=== PATIENT | male | born 1965 | race Caucasian/White ===

== ENCOUNTER 2021-02-04 19:24 | Observation (INO) | payer BC ==
[~2021-02-04 19:24] MED LIST: Iopamidol-370 76% 500 ML 1 ML ONE
[2021-02-04 19:58] LABS: #Basophils 0.1 thou/uL (0.0-0.2); #Eosinphils 0.2 thou/uL (0.0-0.7); #Lymphocytes 3.3 thou/uL (1.20-3.40); #Monocytes 0.7 thou/uL (0.11-0.59); #Neutrophils 4.9 thou/uL (1.40-6.50); %Basophils 1.4 % (0.0-1.0); %Eosinophils 2.1 % (0.0-10.0); %Monocytes 7.6 % (0.0-10.0); %Neutrophils 52.9 % (42.0-75.0); Hemoglobin 15.7 g/dL (14.0-18.0); Mean Corpuscular HGB CONC 34.4 g/dL (32.0-36.0); Mean Corpuscular Hemoglobin 30.7 pg (27.0-31.0); Mean Corpuscular Volume 89.4 fL (78.0-98.0); Mean Platelet Volume 8.2 fL (7.4-10.4); Platelet Count 243 thou/uL (130-400); RBC Distribution Width 12.4 % (11.5-14.5); Red Blood Cell (RBC) Count 5.11 mill/uL (4.70-6.10); White Blood Cell (WBC) Count 9.3 thou/uL (4.8-10.8)
[2021-02-04 20:19] LABS: ALT (SGPT) 27 U/L (8-55); AST (SGOT) 15 U/L (5-34); Alkaline Phosphatase 63 U/L (40-110); Anion Gap 17 mmol/L (10-20); BUN (Urea Nitrogen) 19 mg/dL (8.4-25.7); Bilirubin, Total 0.2 mg/dL (0.2-1.2); Calc. Creatinine Clearance 0 mL/min (70-130); Calcium 9.2 mg/dL (7.8-10.44); Carbon Dioxide 26 mmol/L (22-29); Chloride 101 mmol/L (98-107); Globulin 3.4 g/dL (2.4-3.5); Glucose 114 mg/dL (70-105); Potassium 3.5 mmol/L (3.5-5.1); Protein, Total 7.4 g/dL (6.0-8.3); Sodium 140 mmol/L (136-145)
[2021-02-04] MEDS ORDERED: Aspirin Chewable 81 MG TAB ONE (20:42)
[2021-02-04] MEDS ORDERED: Nitroglycerin 2% Ointment 1 INCH/1 GM Packet ONE (20:42)
[2021-02-04] MEDS ORDERED: Ondansetron PF 4 MG/2 ML Vial IVP PRN (21:32)
[2021-02-04] MEDS ORDERED: Ondansetron ODT 4 MG TAB PO PRN (21:32)
[2021-02-04] MEDS ORDERED: hydrOXYzine 25 MG TAB PO PRN (21:42)
[2021-02-04 23:14] LABS: Troponin I Less than 0.010 ng/mL (< 0.028)
[2021-02-04 23:18] VITALS: BMI 41.1
[2021-02-04] MEDS ORDERED: Metoclopramide HCl 10 MG TAB PO SCH (23:30)
[2021-02-05 02:30] LABS: Troponin I Less than 0.010 ng/mL (< 0.028)
[2021-02-05 02:32] LABS: Cardiac Risk 3.8 (Less than 4.5)
[2021-02-05 03:18] LABS: Hemoglobin A1c 5.7 % (4.0-6.0)
[2021-02-05] MEDS ORDERED: Enoxaparin Sodium 40 MG/0.4 ML SYRINGE SC SCH (09:00)
[2021-02-05 12:50] VITALS: BP 142/82; TEMP 97.9
[2021-02-05 13:14] LABS: SARS-CoV-2 PCR by NAA Not Detected (NotDetected)
[2021-02-05] MEDS ORDERED: Atorvastatin Calcium 40 MG TAB PO SCH (21:00)
== END 2021-02-05 13:45 | disposition home or self-care (01) ==
LOC: ERS 19:24 → 2SW 20:49
PROVIDERS: ADMIT Family Medicine; ATTEND Family Medicine
DX: R07.2 Precordial pain (principal); I10 Essential (primary) hypertension; L40.9 Psoriasis, unspecified; K76.0 Fatty (change of) liver, not elsewhere classified; R16.1 Splenomegaly, not elsewhere classified; K43.9 Ventral hernia without obstruction or gangrene; K57.30 Diverticulosis of large intestine without perforation or abscess without bleeding; E66.9 Obesity, unspecified; Z68.41 Body mass index [BMI] 40.0-44.9, adult; Z79.899 Other long term (current) drug therapy; Z88.6 Allergy status to analgesic agent; Z20.822 Contact with and (suspected) exposure to COVID-19
CPT/HCPCS: 36415; 71045; 71275; 74174; 78452; 80053; 80061; 83036; 84443; 84484; 85025; 93005; 93017; 96372; A9500; G0378; J0153; J1650; Q9967; U0003; U0005

== ENCOUNTER 2021-09-19 11:06 | Outpatient (CLI) | payer BC ==
[~2021-09-19 11:06] MED LIST changes: +Iopamidol 370 76% 100 ML VIAL ONE; -Iopamidol-370 76% 500 ML 1 ML ONE
== END 2021-09-19 11:07 | disposition home or self-care (01) ==
LOC: CT 11:06
PROVIDERS: ATTEND Surgery
DX: R10.2 Pelvic and perineal pain (principal); R14.0 Abdominal distension (gaseous); K57.30 Diverticulosis of large intestine without perforation or abscess without bleeding; K86.89 Other specified diseases of pancreas; R93.2 Abnormal findings on diagnostic imaging of liver and biliary tract
CPT/HCPCS: 74177; 76705; Q9967

== ENCOUNTER 2022-04-12 08:43 | Outpatient (CLI) | payer BC ==
[2022-04-12] MEDS ORDERED: Iopamidol 370 76% 100 ML VIAL ONE (09:21)
== END 2022-04-12 08:44 | disposition home or self-care (01) ==
LOC: CT 08:43
PROVIDERS: ATTEND Nurse Practitioner Family
DX: S39.91XA Unspecified injury of abdomen, initial encounter (principal); K76.0 Fatty (change of) liver, not elsewhere classified
CPT/HCPCS: 74170